=== PATIENT | male | born 1930 | race Caucasian/White ===

== ENCOUNTER 2017-03-21 14:30 | Observation (INO) ==
[2017-03-21] MEDS ORDERED: MORPHINE SULFATE 2 MG SYRINGE IM ONE (15:10)
[2017-03-21] MEDS ORDERED: ONDANSETRON ODT 4 MG TABLET PO ONE (15:10)
--- NOTE | 2017-03-21 15:20 | Emergency Department Report ---
General Adult HPI - General Chief complaint: Extremity Injury, Lower Stated complaint: Fall/L Leg Pain Time Seen by Provider: 03/21/17 14:32 Source: patient, family Mode of arrival: EMS Limitations: no limitations - History of Present Illness HPI narrative: 86-year-old male who suffered a mechanical [place]. Patient was seen and evaluated with negative pelvic x-ray one day ago in the emergency Department. Patient notes continuing discomfort and difficulty with ambulation. Patient describes moderate dull aching pain in the left hip without radiation. Symptoms have been persistent in nature since onset on Monday. Patient denies striking his head, loss of consciousness, or neck pain. Patient denies any other complaints or associated symptoms. No other injury. Pain improves with rest and positioning and increases with ambulation. Patient was sent by his primary care physician Dr. Ramirez for CT scan of the pelvis due to continued difficulty with ambulation. - Related Data Home Medications Medication Instructions Recorded Confirmed Apixaban [Eliquis] 2.5 mg PO BID #0 09/08/15 03/21/17 Trazodone HCl 50 mg PO HS #0 08/11/16 03/21/17 Multivitamin [Multi-Day Vitamins] 1 tab PO DAILY #30 tab 10/28/16 03/21/17 Tamsulosin HCl [Flomax] 0.4 mg PO HS #0 cap 10/28/16 03/21/17 Amlodipine [Norvasc] 5 mg PO DAILY 03/21/17 03/21/17 Carbidopa/Levodopa 1 each PO TID 03/21/17 03/21/17 [Carbidopa-Levodopa 25-250 Tab] Citalopram [Celexa] 1 tab PO DAILY 03/21/17 03/21/17 Duloxetine [Cymbalta] 30 mg PO DAILY 03/21/17 03/21/17 Previous Rx's Medication Instructions Recorded Gabapentin 100 mg PO BID #60 08/31/16 Mirabegron [Myrbetriq] 50 mg PO DAILY 30 Days 11/01/16 Quetiapine Fumarate 50 mg PO HS 30 Days 11/01/16 Oxycodone/APAP 5/325 [Percocet 1 tab PO Q4H PRN #14 tab 03/20/17 5/325] Allergies Allergy/AdvReac Type Severity Reaction Status Date / Time bacitracin Allergy Mild rash Verified 03/21/17 14:36 gramicidin D Allergy Mild rash Verified 03/21/17 14:36 neomycin Allergy Mild rash Verified 03/21/17 14:36 polymyxin B Allergy Mild rash Verified 03/21/17 14:36 adhesive tape Allergy Unknown Verified 03/21/17 14:36 mupirocin Allergy Unknown Verified 03/21/17 14:36 Sulfa (Sulfonamide Allergy Unknown Verified 03/21/17 14:36 Antibiotics) Review of Systems Constitutional: Denies: fever, chills Eyes: Denies: eye pain, vision change ENT: Denies: ear pain, throat pain Cardiovascular: Denies: chest pain, palpitations Respiratory: Denies: cough, dyspnea Gastrointestinal: Denies: abdominal pain, nausea, vomiting, diarrhea Genitourinary: Denies: urgency, dysuria Musculoskeletal: Denies: back pain, arthralgia Integumentary: Denies: erythema, rash Neurological: Denies: headache, numbness Psychiatric: Denies: anxiety, depression Endocrine: Denies: fatigue, heat or cold intolerance Hematological/Lymphatic: Denies: easy bleeding, easy bruising Allergic/Immunologic: Denies: facial swelling, urticaria PFSH Patient Stated Medical History Cataracts Yes Hx Incontinence Yes Other Yes: CHEWS Dementia Medical History Updates: Dementia, Surgical History: Cataract surgery Family History: Reviewed and noncontributory. - Social History Smoking status: Never smoker Substance use type: does not use Alcohol intake frequency: does not drink Physical Exam - Limitations Limitations: no limitations - General General appearance: alert, in no apparent distress - Normal Exams: Head:: Normocephalic without trauma Eyes:: Pupils are PERRLA w/ EOMI, No scleral icterus, irritation, or foreign bodies noted ENMT:: No facial trauma, nasal exudates, pharyngeal erythema, or exudates are noted Dental: No fractured, loose, or missing teeth noted Neck:: Full range of motion, without adenopathy, JVD, bruits or thyromegaly Chest/Respirations:: Clear all zal[place]ar, with good airflow, and symmetry bilaterally Cardiovascular:: Regular rate and rhythm, without murmur or gallop, Pulses 2+ all extremities, capillary refill, <2 seconds all extremities Abdomen:: Bowel sounds positive, soft, non-tender, non-distended, no hepatosplenomegaly, masses or bruits noted Lymphatic:: No lymphadenopathy, or lymphedema noted Musculoskeletal:: No tenderness (left hip - tender to palpation diffusely. Slightly decreased range of motion secondary to pain. Skin is intact. No erythema. No edema. Pulses intact. Sensation intact. Capillary refill less than 2. No other tenderness in the left lower extremity. All other extremities are unremarkable.), or deformity noted, good range of motion, all extremities Integumentary:: No rashes, hives, or bruising noted, hair and nails, without abnormality Neurological:: Patient is alert, and oriented, cranial nerves, motor/sensory/ cerebellar, exams w/o gross deficits, to observation Psychiatric:: Patient exhibits, appropriate attention, emotion and affect Course Vital Signs Blood Pressure 147/70 H 03/21/17 14:30 Temperature 96.8 F 03/22/17 00:37 Pulse Rate 62 03/22/17 00:37 Respiratory Rate 14 03/22/17 00:37 Blood Pressure 112/62 03/22/17 00:37 Pulse Oximetry 93 03/22/17 00:37 Medical Decision Making - MDM Narrative Medical decision making narrative: Imaging was discussed in detail with the patient and family and questions are answered. Patient is given analgesic pain medication within 1 hour of arrival to the emergency department. Patient's CT scan shows non-displaced fractures of the left inferior/superior pubic rami and sacrum. Patient is discussed with orthopedics on-call Dr. Hayes who recommends admission for pain control. Patient is discussed with his primary care physician Dr. Ramirez who agrees to admit the patient. Patient is admitted to the hospital in improved condition. Patient and family are in agreement with the current plan of management. No further orders from accepting or consulting physicians who were in agreement with the current plan of management. - Differential Diagnosis sprain, strain, fracture, dislocation - Lab Data Result diagrams: 03/22/17 04:31 03/22/17 04:31 - Radiology Data CT Pelvis/LLE - non-displaced fractures of the inferior/superior pubic rami and sacral base. No femur fracture noted. Disposition Clinical Impression: Pelvic fracture Qualifiers: Encounter type: initial encounter Pelvic bone location: unspecified part of pelvis Fracture type: closed Fracture alignment: nondisplaced Qualified Code(s) : S32.9XXA - Fracture of unspecified parts of lumbosacral spine and pelvis, initial encounter for closed fracture Disposition: 02 To [facility] Condition: Improved Time of Disposition: 16:00 (Admit. Dr. Ramirez. ) - Seen By: physician
--- NOTE | 2017-03-21 15:47 | CT Scan Report ---
Indication: Fall with continued left hip pain PROCEDURE: CT pelvis wo con: Encounter: Initial Comparison: Left hip radiographs dated March 20, 2017 Technique: Axial noncontrast CT imaging through the pelvis with coronal and sagittal two-dimensional reformats. Automated Exposure Control and Iterative Reconstruction dose reducing techniques were utilized. Findings: Bony demineralization. There is a nondisplaced fracture of the left superior pubic ramus near the pubic symphysis. This region was not included on the comparison radiographs. There is also a minimally displaced fracture of the left inferior pubic ramus. No evidence of a left proximal femoral fracture. There is a vertically oriented lucency in the lateral aspect of the left sacrum consistent with a nondisplaced fracture. Severe left hip osteoarthritis with osteophyte formation and subchondral cyst formation. 3.5 cm abdominal aortic aneurysm. There is inflammatory change and stranding in the extraperitoneal space anterior to the bladder. No significant free hemorrhage or intramuscular hematoma identified. No fluid collections. Bladder is thick walled. Impression: 1. Nondisplaced left superior and inferior pubic ramus fractures. 2. Left sacral fracture. 3. Inflammation in the extraperitoneal space surrounding the bladder probably due to the recent trauma. There does not appear to be enough fluid to suggest extraperitoneal bladder rupture. 4. 3.5 cm abdominal aortic aneurysm. Follow-up exam is recommended in 2 years to evaluate for stability. .
--- NOTE | 2017-03-21 15:51 | CT Scan Report ---
Indication: pain, inability to ambulate PROCEDURE: CT LE LT wo con: Encounter: Initial Comparison: CT pelvis from today and left hip radiographs from yesterday Technique: Axial noncontrast CT imaging of the left femur was performed with coronal and sagittal two-dimensional reformats. Automated Exposure Control and Iterative Reconstruction dose reducing techniques were utilized. Findings: No acute femoral fracture seen. Left sacral fracture described in the CT pelvis report. Severe osteoarthritis in the left hip. Left superior and inferior pubic ramus fractures also described on the CT pelvis report. Small knee joint effusion. Mild to moderate degenerative changes in the knee. Impression: No acute femoral fracture. .
[2017-03-21] MEDS ORDERED: ENOXAPARIN 40 MG/0.4 ML INJECTION SQ SCH (19:15)
--- NOTE | 2017-03-21 19:15 | Internal Med History&Physical ---
Internal Medicine HPI Chief complaint: left pelvic and sacral fracture History of present illness: Mr. Leos is a pleasant 78-year-old male with dementia. He was seen and examined in the emergency department yesterday following a [place] he [place] the [place]. He states he was at a golf course with his grandson watching and then when they were headed home he fell in the parking lot. He also hit his head at that time. He was x-rayed in the emergency department and found to have no fracture. However, today he was unable to bear weight at home. I was alerted by hospital staff to call to check on him. I then had him transferred to the emergency department by EMS and requested a CT of his pelvis and hip. At that time it was discovered that he had 2 nondisplaced fractures of the pelvis and one fracture of the sacrum on the left side. He denies any syncope and is not sure why he fell. Review of Systems - Constitutional Constitutional: Absent: anorexia, chills, fatigue, headache(s), lethargy, malaise - EENMT Eyes: Absent: blurry vision, diplopia, loss of vision, photophobia - Cardiovascular Cardiovascular: Absent: chest pain, palpitations, syncope, dyspnea on exertion, orthopnea Rhythm: Present: abnormal rhythm Vascular: Absent: Raynaud's, atrophy, intermittent claudication, pallor of an extermity, pedal edema - Respiratory Respiratory: Absent: cough, dyspnea, hemoptysis, dyspnea on exertion, wheezing, pain on inspiration, chest congestion - Gastrointestinal Gastrointestinal: Absent: abdominal pain, change in bowel habits, change in stool character, coffee ground emesis, constipation, diarrhea, dyspepsia, dysphagia, melena, nausea - Musculoskeletal Musculoskeletal: Present: abnormal gait (unable to bear weight), limited range of motion (unable to lift his left leg off the bed secondary to pain) - Integumentary/Breasts Integumentary: Absent: alopecia, change in hair, change in nails, erythema, lesions, pruritus, wounds - Neurological Neurological: Present: confusion - Psychiatric Psychiatric: Absent: anxiety, depression Psychiatric Comments: Poor memory - Endocrine Endocrine: Absent: cold intolerance, excessive sweating, flushing, heat intolerance, palpitations, polydipsia - Hematologic/Lymphatic Hematologic/Lymphatic: Absent: easy bleeding, easy bruising, lymphadenopathy - Allergic/Immunologic Allergic/Immunologic: Absent: tongue swelling, throat swelling, itchy eyes, seasonal rhinorrhea, urticaria PFSH Patient Stated Medical History Cataracts Yes Hx Incontinence Yes Osteoarthritis Yes Other Yes: CHEWS Depression Yes Medical History Updates: Dementia, Family History: Noncontributory - Social History Smoking status: Never smoker Substance use type: does not use Alcohol intake: former Alcohol intake frequency: does not drink Housing: house Household members: spouse Current occupational status: retired Current occupational exposures/hazards: No Does patient use chewing tobacco?: No Current residence: Apartment/Private Home Medications Home Medications Medication Instructions Recorded Confirmed Type Apixaban [Eliquis] 2.5 mg PO BID #0 09/08/15 03/21/17 History Trazodone HCl 50 mg PO HS #0 08/11/16 03/21/17 History Multivitamin [Multi-Day Vitamins] 1 tab PO DAILY #30 tab 10/28/16 03/21/17 History Tamsulosin HCl [Flomax] 0.4 mg PO HS #0 cap 10/28/16 03/21/17 History Amlodipine [Norvasc] 5 mg PO DAILY 03/21/17 03/21/17 History Carbidopa/Levodopa 1 each PO TID 03/21/17 03/21/17 History [Carbidopa-Levodopa 25-250 Tab] Citalopram [Celexa] 1 tab PO DAILY 03/21/17 03/21/17 History Duloxetine [Cymbalta] 30 mg PO DAILY 03/21/17 03/21/17 History Allergies Allergy/AdvReac Type Severity Reaction Status Date / Time bacitracin Allergy Mild rash Verified 03/21/17 14:36 gramicidin D Allergy Mild rash Verified 03/21/17 14:36 neomycin Allergy Mild rash Verified 03/21/17 14:36 polymyxin B Allergy Mild rash Verified 03/21/17 14:36 adhesive tape Allergy Unknown Verified 03/21/17 14:36 mupirocin Allergy Unknown Verified 03/21/17 14:36 Sulfa (Sulfonamide Allergy Unknown Verified 03/21/17 14:36 Antibiotics) Exam Vital signs: Temperature 97.9 F 03/21/17 17:52 Pulse Rate 67 03/21/17 17:52 Respiratory Rate 16 03/21/17 17:52 Blood Pressure 165/74 H 03/21/17 17:52 Pulse Oximetry 96 03/21/17 17:52 Oxygen Delivery Method Room Air - Constitutional no acute distress, well developed, cooperative - Routine HEENT Exam Head: Present: normocephalic, atraumatic Eye: Present: EOMI, PERRL, conjunctivae pink. Absent: conjunctival icterus, scleral injection ENT: Present: mucous membranes moist, oropharynx clear, nares patent - Routine Neck Exam Present: supple, full ROM. Absent: carotid bruit, lymphadenopathy, thyromegaly , tenderness - Routine Chest/Breast/Axilla Exam Chest wall: Absent: tenderness Axillae: Absent: lymphadenopathy - Routine Respiratory Exam Absent: accessory muscle use, dyspnea, decreased breath sounds, rales, respiratory distress, rhonchi, stridor, wheezes - Routine Cardiovascular Exam Present: irregularly irregular. Absent: S3, S4 - Routine Abdominal Exam Present: soft, normoactive bowel sounds, non distended, non tender. Absent: rebound, guarding, rigid - Routine Extremities Exam Present: tenderness (at the pelvis and left hip). Absent: cyanosis, clubbing, edema - Routine Back/Spine/Pelvis Exam Pelvis: Present: left sciatic notch tenderness, SI joint tenderness, sacral tenderness - Routine Skin Exam Present: intact. Absent: cyanosis, erythema, mottling, petechiae, urticaria, jaundice, rash - Routine Neurological Exam Present: alert, oriented X3, CN II-XII intact. Absent: moving all extremities, hearing grossly intact - Routine Psychiatric Exam Present: normal affect, cooperative Internal Medicine Results - Imaging and Cardiology CT scan - pelvis Status: image reviewed by me Assessment and Plan (1) Pelvic fracture Current visit: Yes Status: Acute (2) Atrial fibrillation Current visit: Yes Status: Chronic (3) Dementia Current visit: Yes Status: Chronic (4) Hypertension Current visit: Yes Status: Chronic (5) Depression Current visit: Yes Status: Chronic Sepsis Assessment - Evaluation Sepsis screening result: No Definite Risk
[2017-03-21] MEDS: TRAZODONE 50 MG TABLET PO SCH (22:43)
[2017-03-21] MEDS: CALCIUM 600 + VIT D 400 TABLET PO SCH (22:44)
[2017-03-21] MEDS: POM TAMSULOSIN 0.4 MG CAPSULE PO SCH (22:44)
[2017-03-21] MEDS: QUETIAPINE 25 MG PO SCH (22:44)
[2017-03-21] MEDS: Oxycodone/Acetaminophen 5/325 1 TAB PO PRN (22:45)
[2017-03-21] MEDS: GABAPENTIN 100 MG CAPSULE PO SCH (22:45)
[2017-03-22] MEDS: Oxycodone/Acetaminophen 5/325 1 TAB PO PRN ×2 (06:28→22:15)
--- NOTE | 2017-03-22 07:57 | XRay Report ---
Indication: Pelvic Fracture PROCEDURE: XR pelvis min 3V: Encounter: Initial Comparison: Pelvis CT from the same date Findings: Nondisplaced fractures of the left superior and inferior pubic rami near the pubic symphysis. No additional acute fracture. No dislocation. Severe osteoarthritis in the left hip joint. Degenerative change in the lower lumbar spine. Bony demineralization. Impression: Closed posttraumatic left superior and inferior pubic rami fractures. .
[2017-03-22] MEDS: GABAPENTIN 100 MG CAPSULE PO SCH ×2 (08:56→20:53)
[2017-03-22] MEDS: POM CITALOPRAM 20 MG TABLET PO SCH (08:57)
[2017-03-22] MEDS: AMLODIPINE 5 MG TABLET PO SCH (08:57)
[2017-03-22] MEDS: MULTI VITAMIN PLAIN PO SCH (08:57)
[2017-03-22] MEDS: CALCITONIN NASAL SPRAY 3.7ml NS SCH (08:58)
[2017-03-22] MEDS: DULOXETINE 30 MG PO SCH (08:58)
[2017-03-22] MEDS ORDERED: MIRABEGRON 25mg TABLET PO SCH (09:00)
[2017-03-22] MEDS ORDERED: APIXABAN 5 MG TABLET PO SCH (09:00)
[2017-03-22] MEDS: CALCIUM 600 + VIT D 400 TABLET PO SCH ×2 (09:03→20:53)
--- NOTE | 2017-03-22 11:15 | XRay Report ---
Indication: re evaluated fractures after weight bearing w/ physical therapy instructor PROCEDURE: XR pelvis min 3V: Encounter: Initial Comparison: Pelvis radiograph dated March 21, 2017 Findings: No visible change in alignment of the left superior and inferior pubic ramus fractures. No new fracture or dislocation. Impression: Findings as above. .
[2017-03-22 17:14] VITALS: BMI 26.6
--- NOTE | 2017-03-22 18:11 | Internal Med Progress Note ---
Internal Medicine Subjective Patient seen and examined in his room today. is at the bedside. Questions answered. He is currently scheduled for transfer tomorrow to [facility] for [facility]. His pain is well controlled although he is unable to get out of bed by himself. He is also still unable to raise his left leg due to the pelvic fractures. He is having some withdrawal from nicotine and requested patch as well as his usual MiraLAX. He states that it's been approximately 4 days since he has had a BM. No other new problems Exam Vital Signs: Temperature 97.3 F 03/22/17 15:11 Pulse Rate 73 03/22/17 15:11 Respiratory Rate 17 03/22/17 15:11 Blood Pressure 136/62 03/22/17 15:11 Pulse Oximetry 94 03/22/17 15:11 Oxygen Delivery Method Room Air Oxygen Flow Rate 1 Telemetry Rhythm: A-fib Height: 5 ft 11 in Weight: 86.8 kg Body Mass Index: 26.6 - Constitutional Present: no acute distress - Routine HEENT Exam Head: Present: normocephalic, atraumatic Eye: Present: EOMI, PERRL. Absent: conjunctival icterus, scleral injection, conjunctivae pink ENT: Present: mucous membranes moist, oropharynx clear, nares patent - Routine Neck Exam Present: supple, full ROM. Absent: JVD, carotid bruit, lymphadenopathy, thyromegaly, tenderness - Routine Chest/Breast/Axilla Exam Chest wall: Absent: tenderness Axillae: Absent: lymphadenopathy - Routine Respiratory Exam Absent: accessory muscle use, dyspnea, rales, respiratory distress, rhonchi, stridor, wheezes - Routine Cardiovascular Exam Present: irregularly irregular. Absent: S3, S4 - Routine Abdominal Exam Present: soft, normoactive bowel sounds, non distended, non tender. Absent: rebound, guarding, rigid, organomegaly - Routine Extremities Exam Absent: cyanosis, clubbing, edema - Routine Back/Spine/Pelvis Exam Pelvis: Present: left sciatic notch tenderness, SI joint tenderness, tenderness of the symphysis pubis, sacral tenderness - Routine Skin Exam Present: intact. Absent: cyanosis, erythema, pallor, mottling, petechiae, urticaria, jaundice - Routine Neurological Exam Present: alert. Absent: moving all extremities - Routine Psychiatric Exam Present: normal affect, cooperative. Absent: good insight, depressed, anxious Internal Medicine Results - Labs CBC & Chem 7: 03/22/17 04:31 03/22/17 04:31 Labs: Short CBC 03/22/17 Range/Units 04:31 WBC 6.6 (4.5-11.0) T/MM3 Hgb 11.2 L (13.5-17.5) GM/DL Hct 34.9 L (41-53) % Plt Count 188 (130-400) T/MM3 BMP 03/22/17 04:31 Sodium 142 Potassium 4.0 Chloride 106 Carbon Dioxide 29 BUN 21.0 H Creatinine 1.0 Glucose 90 Calcium 9.4 Liver Function 03/22/17 Range/Units 04:31 Total Bilirubin 1.00 (0.20-1.30) MG/DL AST 22 (17-59) U/L ALT 23 (21-72) U/L Alkaline Phosphatase 66 (38-126) U/L Albumin 3.1 L (3.5-5.0) G/DL Progress Note-A&P (1) Pelvic fracture Status: Acute Current Visit: Yes (2) Atrial fibrillation Status: Chronic Current Visit: Yes (3) Dementia Status: Chronic Current Visit: Yes (4) Hypertension Status: Chronic Current Visit: Yes (5) Depression Status: Chronic Current Visit: Yes (6) Constipation Status: Chronic Current Visit: Yes (7) Nicotine withdrawal Status: Acute Current Visit: Yes - Time Spent With Patient Total time spent is greater than 50% in coordination of care (as documented) at patient's floor/unit and/or counseling patient: 25 - 35 minutes Sepsis Assessment - Evaluation Sepsis screening result: No Definite Risk Hospital Course Summary Disclaimer: The visit summary below is not to be considered part of the above Progress Note. Hospital Course: 03/22/17 18:12 Mr. Cordoba appears content this evening. I did discuss transfer with both the patient and his and they are in agreement. He'll be transferred tomorrow to [facility] for [facility] for the multiple pelvic fractures.
[2017-03-22] MEDS: POLYETHYL GLYCOL 3350 17gm PACKET PO SCH (18:36)
[2017-03-22] MEDS: NICOTINE 14 MG PATCH TD SCH (18:37)
[2017-03-22] MEDS: ELIQUIS 2.5 MG PO SCH (20:54)
[2017-03-22] MEDS: TRAZODONE 50 MG TABLET PO SCH (21:20)
[2017-03-22] MEDS: QUETIAPINE 25 MG PO SCH (21:20)
[2017-03-22] MEDS: POM TAMSULOSIN 0.4 MG CAPSULE PO SCH (21:20)
[2017-03-23] MEDS: Oxycodone/Acetaminophen 5/325 1 TAB PO PRN (05:59)
[2017-03-23] MEDS ORDERED: MYRBETRIQ 50 MG PO SCH (09:00)
[2017-03-23] MEDS ORDERED: NICOTINE PATCH REMOVAL TD SCH (09:00)
[2017-03-23 09:39] VITALS: BP 110/63; PULSE 76; RESP 16; TEMP 96.9; O2SAT 94
[2017-03-23] MEDS: AMLODIPINE 5 MG TABLET PO SCH (09:45)
[2017-03-23] MEDS: POLYETHYL GLYCOL 3350 17gm PACKET PO SCH (09:45)
[2017-03-23] MEDS: CALCIUM 600 + VIT D 400 TABLET PO SCH (09:45)
[2017-03-23] MEDS: POM CITALOPRAM 20 MG TABLET PO SCH (09:46)
[2017-03-23] MEDS: GABAPENTIN 100 MG CAPSULE PO SCH (09:46)
[2017-03-23] MEDS: MULTI VITAMIN PLAIN PO SCH (09:46)
[2017-03-23] MEDS: DULOXETINE 30 MG PO SCH (09:46)
[2017-03-23] MEDS: CALCITONIN NASAL SPRAY 3.7ml NS SCH (09:47)
[2017-03-23] MEDS: ELIQUIS 2.5 MG PO SCH (09:51)
[2017-03-23] MEDS: NICOTINE 14 MG PATCH TD SCH (10:47)
--- NOTE | 2017-03-23 12:31 | Discharge Instructions ---
Discharge Plan - Med Rec/Dispo Katherine Instructions: Pelvic Fracture (DC) Prescriptions: New Calcitonin Nasal [place] [Miacalcin [place]] 1 spray NS DAILY bottle Calcium 600 + D [Caltrate + D] 1 tab PO BID tablet Nicotine Patch [Nicoderm] 14 mg TD DAILY patch PEG 3350 17gm PACKET [Miralax] 17 gm PO DAILY packet Nicotine Patch Removal 1 removal TD DAILY patch Continue Gabapentin 100 mg PO BID #60 Mirabegron [Myrbetriq] 50 mg PO DAILY 30 Days Quetiapine Fumarate 50 mg PO HS 30 Days Oxycodone/APAP 5/325 [Percocet 5/325] 1 tab PO Q4H PRN #14 tab PRN Reason: Pain Citalopram [Celexa] 1 tab PO DAILY Amlodipine [Norvasc] 5 mg PO DAILY Apixaban [Eliquis] 2.5 mg PO BID #0 Trazodone HCl 50 mg PO HS #0 Tamsulosin HCl [Flomax] 0.4 mg PO HS #0 cap Multivitamin [Multi-Day Vitamins] 1 tab PO DAILY #30 tab Duloxetine [Cymbalta] 30 mg PO DAILY Carbidopa/Levodopa [Carbidopa-Levodopa 25-250 Tab] 1 each PO TID Discharge Instructions/Outpatient Orders: Final Provider Discharge Instructions Location: Determined By Patient - Disposition 61 To Any Swing Bed
--- NOTE | 2017-03-23 12:40 | Discharge Summary ---
Discharge Information Date of admission: 03/21/17 17:31 Attending Physician: Jj Ramirez DO Primary care physician: Jj Ramirez DO Consults: 03/22/17 14:50 [facility] Consult [CONS] Routine 03/22/17 16:21 Doctor [Physician Consult] [CONS] Routine Consulting Provider: [facility] Reason For Exam: continuity of care Ordering Provider has Notified Wire Weaver: Yes - Discharge Diagnosis (1) Pelvic fracture Qualifiers: Encounter type: initial encounter Pelvic bone location: unspecified part of pelvis Fracture type: closed Fracture alignment: nondisplaced Qualified Code(s): S32.9XXA - Fracture of unspecified parts of lumbosacral spine and pelvis, initial encounter for closed fracture Status: Acute (2) Atrial fibrillation Qualifiers: Atrial fibrillation type: chronic Qualified Code(s): I48.2 - Chronic atrial fibrillation Status: Chronic (3) Dementia Qualifiers: Dementia type: unspecified type Dementia behavioral disturbance: without behavioral disturbance Qualified Code(s): F03.90 - Unspecified dementia without behavioral disturbance Status: Chronic (4) Hypertension Status: Chronic (5) Depression Status: Chronic (6) Constipation Status: Chronic (7) Nicotine withdrawal Status: Acute - Laboratory Labs: 03/22/17 04:31 03/22/17 04:31 History of Present Illness HPI: Mr. Leos is a pleasant 78-year-old male with dementia. He was seen and examined in the emergency department yesterday following [place]. He states he was at a golf course with his grandson watching and then when they were headed home he fell in the parking lot. He also hit his head at that time. He was x-rayed in the emergency department and found to have no fracture. However, today he was unable to bear weight at home. I was alerted by hospital staff to call to check on him. I then had him transferred to the emergency department by EMS and requested a CT of his pelvis and hip. At that time it was discovered that he had 2 nondisplaced fractures of the pelvis and one fracture of the sacrum on the left side. He denies any syncope and is not sure why he fell. Hospital Course This is a general summary of the patient's hospital course. For more details refer to the complete medical record. Hospital course: 03/22/17 18:12 Mr. Cordoba appears content this evening. I did discuss transfer with both the patient and his and they are in agreement. He'll be transferred tomorrow to [facility] for the multiple pelvic fractures. Discharge Plan - Med Rec/Dispo Katherine Instructions: Pelvic Fracture (DC) Prescriptions: New Calcitonin Nasal [place] [Miacalcin [place]] 1 spray NS DAILY bottle Calcium 600 + D [Caltrate + D] 1 tab PO BID tablet Nicotine Patch [Nicoderm] 14 mg TD DAILY patch PEG 3350 17gm PACKET [Miralax] 17 gm PO DAILY packet Nicotine Patch Removal 1 removal TD DAILY patch Continue Gabapentin 100 mg PO BID #60 Mirabegron [Myrbetriq] 50 mg PO DAILY 30 Days Quetiapine Fumarate 50 mg PO HS 30 Days Oxycodone/APAP 5/325 [Percocet 5/325] 1 tab PO Q4H PRN #14 tab PRN Reason: Pain Citalopram [Celexa] 1 tab PO DAILY Amlodipine [Norvasc] 5 mg PO DAILY Apixaban [Eliquis] 2.5 mg PO BID #0 Trazodone HCl 50 mg PO HS #0 Tamsulosin HCl [Flomax] 0.4 mg PO HS #0 cap Multivitamin [Multi-Day Vitamins] 1 tab PO DAILY #30 tab Duloxetine [Cymbalta] 30 mg PO DAILY Carbidopa/Levodopa [Carbidopa-Levodopa 25-250 Tab] 1 each PO TID Discharge Instructions/Outpatient Orders: Final Provider Discharge Instructions Location: Determined By Patient - Disposition 61 To Any Swing Bed
--- NOTE | 2017-03-23 12:42 | Extended Care Facility Orders ---
Admission Orders Admit to:: [facility] Allergies/Adverse Reactions: Allergies bacitracin Allergy (Mild, Verified 03/21/17 14:36) rash gramicidin D Allergy (Mild, Verified 03/21/17 14:36) rash neomycin Allergy (Mild, Verified 03/21/17 14:36) rash polymyxin B Allergy (Mild, Verified 03/21/17 14:36) rash adhesive tape Allergy (Unknown, Verified 03/21/17 14:36) mupirocin Allergy (Unknown, Verified 03/21/17 14:36) Sulfa (Sulfonamide Antibiotics) Allergy (Unknown, Verified 03/21/17 14:36) Admitting Diagnosis: Pelvic Fracture Admitting Physician: Jj Ramirez DO Attending Physician: Jj Ramirez DO Anticiapted Length of Stay: 30 days or less Rehab Potential: fair Rehab Prognosis: fair Diet: 03/21/17 Breakfast Regular Diet [DIET] Diet Modifications: Evaluations/Treatment: PT, OT Fdc Certification: I certify that SNF services are required to be given on an Inpatient basis because of the patients need for penitentiary care on a continuing basis for the condition(s) for which he/she received inpatient hospital services prior to his/her transfer to the SNF. SNF inpatient care is necessary for the following reasons Indication for Fdc: Other (PT/OT) - Additional Information
--- NOTE | 2017-03-24 17:14 | Right on Track Program ---
Right on Track Program Date of Discharge: 03/23/17 Home Medications: Home Medications Medication Instructions Recorded Confirmed Apixaban [Eliquis] 2.5 mg PO BID #0 09/08/15 03/21/17 Trazodone HCl 50 mg PO HS #0 08/11/16 03/21/17 Multivitamin [Multi-Day Vitamins] 1 tab PO DAILY #30 tab 10/28/16 03/21/17 Tamsulosin HCl [Flomax] 0.4 mg PO HS #0 cap 10/28/16 03/21/17 Amlodipine [Norvasc] 5 mg PO DAILY 03/21/17 03/21/17 Carbidopa/Levodopa 1 each PO TID 03/21/17 03/21/17 [Carbidopa-Levodopa 25-250 Tab] Citalopram [Celexa] 1 tab PO DAILY 03/21/17 03/21/17 Duloxetine [Cymbalta] 30 mg PO DAILY 03/21/17 03/21/17 Previous Rx's Medication Instructions Recorded Gabapentin 100 mg PO BID #60 08/31/16 Mirabegron [Myrbetriq] 50 mg PO DAILY 30 Days 11/01/16 Quetiapine Fumarate 50 mg PO HS 30 Days 11/01/16 Oxycodone/APAP 5/325 [Percocet 1 tab PO Q4H PRN #14 tab 03/20/17 5/325] Calcitonin Nasal [place] [Miacalcin 1 spray NS DAILY bottle 03/23/17 [place]] Calcium 600 + D [Caltrate + D] 1 tab PO BID tablet 03/23/17 Nicotine Patch Removal 1 removal TD DAILY patch 03/23/17 Nicotine Patch [Nicoderm] 14 mg TD DAILY patch 03/23/17 PEG 3350 17gm PACKET [Miralax] 17 gm PO DAILY packet 03/23/17 - Right on Track Program Phone call #1 Right on Track Program: 24 Hour Follow-Up Discharge Summary Received: Yes Care Plan Received: Yes Follow Up: Follow Up Appointment Scheduled (Dr. Ramirez) Education: Diagnosis Education Reviewed, Education Provided To Caregiver Referral: Primary Care Physician, Physical Therapy Comments: I spoke to Elisha, the nurse at [facility] taking care of Sheyla. She didn't have any concerns today. His vitals have been stable. He wasn't complaining of any pain when she just checked on him, but she isn't sure how much he's been weight bearing, either. We reviewed his medical history. She denied any questions or concerns with hospital correspondence or on medication list. Recommendations For Follow-up: 1. F/U with Dr. Ramirez as planned 2. Will continue to follow through [facility] 3. Continue PT/OT [id number] visit Date: 03/30/17 Right on Track Program: 7-14 Day [id number] Discharge Summary Received: Yes Care Plan Received: Yes Follow Up: Follow Up Appointment Scheduled (Dr. Gallagher's team to follow) Education: Diagnosis Education Reviewed, Education Provided To Caregiver (Wound care; pain control) Referral: Primary Care Physician, Physical Therapy Comments: I visited Sheyla at [facility] on 03/30/17. He reports good pain control at rest, and the date night caregiver RN, Asya, reports that he didn't complain of pain as much as he had been. He is still having great difficulty with moving around in bed, and the aids have to use caution when rolling him because of pain. He has not been able to do much with PT because of pain but he told me that he plans on working with them today. He eats most of his meals in his room, which Sheyla states is because of pain. He complains of his bottom feeling sore when he sits on the bedpan, and the aid added that he likes to sit on it for extended periods of time. We discussed importance of skin monitoring and diligent skin care to prevent breakdown. He has had a good appetite and bowel movements daily for the last 3 days. He urinates frequently, which is a chronic issue for him. He has not had any behaviors and he's been quite pleasant and cooperative. Medications reviewed: a nicotine patch has been ordered but staff have not been using it because he continues to chew tobacco. He is on oxycodone 5/325 for pain. PCP was changed to Dr. Gallagher, and she or an ASSURANCE SENIOR MANAGER will see Sheyla at [facility]. Asya denies any questions on medications, discharge summary, or care plan. On exam, Sheyla was pleasant and A&O x3. Lungs were clear, heart rhythm was irregular, abdomen soft and nontender. Left leg and especially foot had more edema compared to right, which pt reports as chronic. B/L thigh atrophy noted, more prominent on left. Pedal pulses intact with good cap refill. Discussed With Patient and Caregiver: Yes Recommendations For Follow-up: 1. F/U with Dr. Gallagher 2. Frequent urination - chronic; hx BPH 3. Monitor skin closely and prevent skin breakdown 4. Encourage PT/OT - Sheyla's goal is to return home with HH, but recommend re- assessing to see if his Raghav will be able to care for him appropriately. He is at high risk for falls. 5. Monitor for behaviors - hx of [facility] for behavioral outbursts , dx with Bipolar and dementia in the past 6. Continue to follow through [facility]
== END 2017-03-23 14:00 ==
LOC: ED 14:30 → MED 14:30
PROVIDERS: ADMIT Internal Medicine; ATTEND Internal Medicine